=== PATIENT | male | born 1970 ===

== ENCOUNTER 2024-12-14 13:48 | Emergency (ER) | payer OTHER ==
[2024-12-14 14:29] VITALS: BMI 16.9
[2024-12-14 14:49] LABS: ABSOLUTE IMMATURE GRANULOCYTES 0.04 x10^3/uL (0.0-0.031); BASOPHILS # 0.02 x10^3/uL (0.01-0.08); EOSINOPHIL % 1.6 % (0.8-7.0); EOSINOPHILS # 0.11 x10^3/uL (0.04-0.54); HEMATOCRIT 23.7 % (40.1-51.0); HEMOGLOBIN 7.1 g/dL (13.7-17.5); MEAN CELL VOLUME 85.3 fl (79.0-92.2); MEAN PLT VOLUME 9.1 fl (9.4-12.4); MONOCYTE # 0.61 x10^3/uL (0.30-0.82); MONOCYTE % 8.9 % (5.3-12.2); PLATELET COUNT 149 x10^3/uL (163-337); RDW 16.5 % (12.2-16.1)
[2024-12-14 14:59] LABS: ACTIVATED PTT 33.3 SECONDS (25.2-36.5)
[2024-12-14 15:18] LABS: POTASSIUM 3.9 mmol/L (3.5-5.1)
[2024-12-14 15:19] LABS: CALCIUM 8.5 mg/dL (8.5-10.1)
[2024-12-14 15:30] LABS: ALBUMIN 1.9 g/dl (3.4-5.0); BILIRUBIN,TOTAL 0.2 mg/dL (0.2-1); BLOOD UREA NITROGEN 55.1 mg/dL (7-18); CREATININE 4.1 mg/dL (0.55-1.3); TOT PROT 6.8 g/dl (6.4-8.2)
[2024-12-14 19:58] LABS: ABSOLUTE IMMATURE GRANULOCYTES 0.02 x10^3/uL (0.0-0.031); BASOPHILS # 0.04 x10^3/uL (0.01-0.08); EOSINOPHILS # 0.13 x10^3/uL (0.04-0.54); HEMATOCRIT 26.5 % (40.1-51.0); HEMOGLOBIN 8.1 g/dL (13.7-17.5); MCHC 30.6 g/dl (32.3-36.5); MEAN CELL VOLUME 83.9 fl (79.0-92.2); MEAN PLT VOLUME 8.9 fl (9.4-12.4); MONOCYTE # 0.77 x10^3/uL (0.30-0.82); MONOCYTE % 11.7 % (5.3-12.2); PLATELET COUNT 146 x10^3/uL (163-337); RDW 16.1 % (12.2-16.1)
[2024-12-14] MEDS: EPOETIN ALFA 10,000 UNIT/1 ML VIAL SQ ONE (20:14)
[2024-12-15 02:19] VITALS: BP 126/72; PULSE 82; RESP 17; TEMP 98.6
== END 2024-12-15 02:19 | disposition home or self-care (01) ==
LOC: JER 13:48
PROC: 3E013GC Introduction of Other Therapeutic Substance into Subcutaneous Tissue, Percutaneous Approach (ICD-10-PCS; principal; 2024-12-14)
DX: I13.2 Hypertensive heart and chronic kidney disease with heart failure and with stage 5 chronic kidney disease, or end stage renal disease (principal); I50.9 Heart failure, unspecified; E11.22 Type 2 diabetes mellitus with diabetic chronic kidney disease; N18.6 End stage renal disease; D63.1 Anemia in chronic kidney disease; Z99.2 Dependence on renal dialysis
CPT/HCPCS: 36415; 36430; 80053; 85025; 85610; 85730; 86850; 86900; 86901; 86922; 93005; 93010; 99291; J0885; P9058

== ENCOUNTER 2025-02-14 14:08 | Inpatient (IN) | payer BC, OTHER ==
[2025-02-14] MEDS ORDERED: VANCOMYCIN 750 MG in DEXTROSE 5%-WATER - 250 ML IVPB ONE (16:52)
[2025-02-14 16:54] LABS: HCV DIAGNOSTIC IN-HOUSE W/RFLX NON-REACTIVE (NONREACTIVE)
[2025-02-14 16:56] LABS: HIV INTERPRETATION NEGATIVE (NEGATIVE)
[2025-02-14 17:39] LABS: ABSOLUTE IMMATURE GRANULOCYTES 0.06 x10^3/uL (0.0-0.031); BASOPHILS # 0.02 x10^3/uL (0.01-0.08); EOSINOPHIL % 0.2 % (0.8-7.0); EOSINOPHILS # 0.02 x10^3/uL (0.04-0.54); MCHC 28.3 g/dl (32.3-36.5); MEAN CELL VOLUME 81.3 fl (79.0-92.2); MEAN PLT VOLUME 9.0 fl (9.4-12.4); MONOCYTE # 0.79 x10^3/uL (0.30-0.82); MONOCYTE % 9.3 % (5.3-12.2); RDW 19.5 % (12.2-16.1)
[2025-02-14 17:41] LABS: INR 1.04 (0.83-1.09); PROTHROMBIN TIME (PATIENT) 11.4 SEC (9.7-13.0)
[2025-02-14 17:44] LABS: ACTIVATED PTT 33.1 SECONDS (25.2-36.5)
[2025-02-14] MEDS ORDERED: PIPERACILLIN/TAZOB 2.25 GM 2.25 GM/50 ML BAG IVPB ONE (17:48)
[2025-02-14 17:50] LABS: BG HCT 35.0 % (35.4-49); VENOUS BASE EXCESS 2.3 mmol/L (-2-2); VENOUS O2 SATURATION 30.8 % (70-80); VENOUS PCO2 48.6 mmHg (38-52); VENOUS PH 7.38 (7.310-7.410)
[2025-02-14 17:51] LABS: CO2 27.0 mmol/L (21-32)
[2025-02-14 17:52] LABS: GLUCOSE,RANDOM 74.0 mg/dL (74-106)
[2025-02-14 17:54] LABS: SGPT/ALT 7.0 U/L (13-61)
[2025-02-14 17:55] LABS: CREATININE 2.1 mg/dL (0.55-1.3); SGOT/AST 6.0 U/L (15-37)
[2025-02-14 17:56] LABS: TOT PROT 6.2 g/dl (6.4-8.2)
[2025-02-14 17:57] LABS: ALK PHOS 57.0 U/L (45-117)
[2025-02-14] MEDS: LACTATED RINGERS SOLUTION 1000 ML INFUS.BAG IV STA (18:04)
[2025-02-14] MEDS: PIPERACILLIN/TAZOB 4.5 GM 2.25 GM in DEXTROSE 5%-WATER 100 ML IVPB ONE (18:05)
[2025-02-14 18:30] LABS: EPI CELLS 35 /uL (0-25.1); HYALINE CASTS 3 /uL (0-3.1); URINE APPEARANCE TURBID; URINE BACTERIA >9,000 /uL (0-1359); URINE BILIRUBIN NEGATIVE (NEGATIVE); URINE COLOR YELLOW; URINE GLUCOSE (UA) NEGATIVE (NEGATIVE); URINE KETONE TRACE (NEGATIVE); URINE LEUK ESTERASE 3+ (NEGATIVE); URINE NITRITE NEGATIVE (NEGATIVE); URINE PROTEIN 2+ (NEGATIVE); URINE UROBILINOGEN 0.2 mg/dL (0.2-1.0); URINE WBC 4313 /uL (0-25.8)
[2025-02-14 20:09] LABS: URINE RBC 83.3 /uL (0-23.9); YEAST FEW (NEGATIVE)
[2025-02-14] MEDS: VANCOMYCIN/WATER FOR INJ (PEG) 750 MG/150 ML BAG IVPB ONE (20:12)
[2025-02-15] MEDS ORDERED: GABAPENTIN 100 MG CAPSULE ONE (00:50)
[2025-02-15] MEDS: GABAPENTIN 100 MG CAPSULE PO SCH (00:51)
[2025-02-15] MEDS ORDERED: MIDODRINE HCL 5 MG TABLET ONE (00:51)
[2025-02-15] MEDS: LIDOCAINE PATCH REMOVAL MC SCH (00:51)
[2025-02-15] MEDS: MIDODRINE HCL 5 MG TABLET PO SCH (00:51)
[2025-02-15 05:24] VITALS: BMI 14.5
[2025-02-15] MEDS: INSULIN ASPART SLIDING SCALE (NOVOLOG) 1 VIAL SQ SCH (06:36)
[2025-02-15] MEDS: PIPERACILLIN/TAZOB 2.25 GM 2.25 GM in DEXTROSE 5%-WATER - 50 ML IVPB SCH ×3 (06:36→17:09)
[2025-02-15] MEDS: HEPARIN NA (PORCINE) 5,000 UNITS/ML 1ML VIAL SQ SCH (06:37)
[2025-02-15 08:51] LABS: ABSOLUTE IMMATURE GRANULOCYTES 0.04 x10^3/uL (0.0-0.031); BASOPHILS # 0.03 x10^3/uL (0.01-0.08); EOSINOPHIL % 0.4 % (0.8-7.0); EOSINOPHILS # 0.03 x10^3/uL (0.04-0.54); MCHC 28.8 g/dl (32.3-36.5); MEAN CELL VOLUME 81.1 fl (79.0-92.2); MEAN PLT VOLUME 9.4 fl (9.4-12.4); MONOCYTE # 0.49 x10^3/uL (0.30-0.82); MONOCYTE % 7.1 % (5.3-12.2); RDW 20.0 % (12.2-16.1)
[2025-02-15 09:26] LABS: CO2 27.0 mmol/L (21-32); GLUCOSE,RANDOM 132.0 mg/dL (74-106)
[2025-02-15 09:28] LABS: SGPT/ALT 7.0 U/L (13-61)
[2025-02-15 09:29] LABS: CREATININE 2.8 mg/dL (0.55-1.3); SGOT/AST 6.0 U/L (15-37)
[2025-02-15 09:30] LABS: TOT PROT 6.4 g/dl (6.4-8.2)
[2025-02-15 09:31] LABS: ALK PHOS 59.0 U/L (45-117)
[2025-02-15] MEDS: ASPIRIN COATED 81 MG TABLET.EC PO SCH (10:17)
[2025-02-15] MEDS: FAMOTIDINE 20 MG TABLET PO SCH (10:17)
[2025-02-15] MEDS: CLOPIDOGREL BISULFATE 75 MG TABLET (FP) PO SCH (10:17)
[2025-02-15] MEDS: THIAMINE 100 MG TABLET PO SCH (10:17)
[2025-02-15] MEDS: NYSTATIN POWDER 100,000 UNITS/GM - 15 GM TOPICAL POWDER TP SCH (10:17)
[2025-02-15] MEDS: LIDOCAINE 4% PATCH TP SCH (10:18)
[2025-02-15 11:50] LABS: EPI CELLS 6 /uL (0-25.1); HYALINE CASTS 0 /uL (0-3.1); URINE APPEARANCE TURBID; URINE BACTERIA 262 /uL (0-1359); URINE BILIRUBIN NEGATIVE (NEGATIVE); URINE COLOR YELLOW; URINE GLUCOSE (UA) NEGATIVE (NEGATIVE); URINE KETONE TRACE (NEGATIVE); URINE LEUK ESTERASE 3+ (NEGATIVE); URINE NITRITE NEGATIVE (NEGATIVE); URINE PROTEIN 2+ (NEGATIVE); URINE UROBILINOGEN 0.2 mg/dL (0.2-1.0); URINE WBC 2565 /uL (0-25.8)
[2025-02-15 12:17] LABS: URINE RBC 65.3 /uL (0-23.9)
[2025-02-15 12:18] LABS: YEAST POSITIVE (NEGATIVE)
[2025-02-15] MEDS: LOPERAMIDE HCL 2 MG CAPSULE PO PRN (15:01)
[2025-02-15] MEDS: AMINO ACIDS/PROTEIN HYDROLYS 30 ML LIQUID.PKT PO SCH (17:11)
[2025-02-15] MEDS: LIPASE/PROTEASE/AMYLASE 6,000 UNIT CAPSULE PO SCH (17:11)
[2025-02-15] MEDS: VITAMIN B COMP W-C 1 EA TABLET (NEPHRO-VITE) PO SCH (17:11)
[2025-02-15] MEDS: PIPERACILLIN/TAZOB 2.25 GM 2.25 GM/50 ML BAG IVPB SCH (17:12)
[2025-02-15] MEDS: INSULIN GLARGINE (LANTUS) 100 UNITS/ML UNITS SQ SCH (22:08)
[2025-02-15] MEDS: MELATONIN 1 MG TABLET PO SCH (22:08)
[2025-02-16] MEDS: PIPERACILLIN/TAZOB 2.25 GM 2.25 GM in DEXTROSE 5%-WATER - 50 ML IVPB SCH (03:01)
[2025-02-16 07:11] LABS: ABSOLUTE IMMATURE GRANULOCYTES 0.06 x10^3/uL (0.0-0.031); BASOPHILS # 0.05 x10^3/uL (0.01-0.08); EOSINOPHIL % 0.7 % (0.8-7.0); EOSINOPHILS # 0.05 x10^3/uL (0.04-0.54); MCHC 28.9 g/dl (32.3-36.5); MEAN CELL VOLUME 80.5 fl (79.0-92.2); MEAN PLT VOLUME 8.7 fl (9.4-12.4); MONOCYTE # 1.01 x10^3/uL (0.30-0.82); MONOCYTE % 13.6 % (5.3-12.2); RDW 20.4 % (12.2-16.1)
[2025-02-16 08:17] LABS: CO2 27 mmol/L (21-32); GLUCOSE,RANDOM 101 mg/dL (74-106)
[2025-02-16 08:20] LABS: CREATININE 3.9 mg/dL (0.55-1.3); SGOT/AST 5 U/L (15-37)
[2025-02-16 08:22] LABS: TOT PROT 6.1 g/dl (6.4-8.2)
[2025-02-16 08:23] LABS: ALK PHOS 54 U/L (45-117); SGPT/ALT < 6 U/L (13-61)
[2025-02-16] MEDS: LOPERAMIDE HCL 2 MG CAPSULE PO PRN (15:15)
[2025-02-17] MEDS: ACETAMINOPHEN 500 MG TABLET (FP) PO ONE (03:10)
[2025-02-17 07:40] LABS: ABSOLUTE IMMATURE GRANULOCYTES 0.03 x10^3/uL (0.0-0.031); BASOPHILS # 0.05 x10^3/uL (0.01-0.08); EOSINOPHIL % 1.0 % (0.8-7.0); EOSINOPHILS # 0.07 x10^3/uL (0.04-0.54); MCHC 29.0 g/dl (32.3-36.5); MEAN CELL VOLUME 81.0 fl (79.0-92.2); MEAN PLT VOLUME 8.9 fl (9.4-12.4); MONOCYTE # 0.99 x10^3/uL (0.30-0.82); MONOCYTE % 14.1 % (5.3-12.2); RDW 20.6 % (12.2-16.1)
[2025-02-17 12:39] LABS: CO2 23 mmol/L (21-32); GLUCOSE,RANDOM 140 mg/dL (74-106)
[2025-02-17 12:42] LABS: CREATININE 4.3 mg/dL (0.55-1.3); SGOT/AST 8 U/L (15-37); SGPT/ALT < 6 U/L (13-61)
[2025-02-17 12:44] LABS: TOT PROT 6.3 g/dl (6.4-8.2)
[2025-02-17 12:45] LABS: ALK PHOS 52 U/L (45-117)
[2025-02-17 16:25] LABS: HEPATITIS B SURF AG NON-MATERN NON-REACTIVE (NONREACTIVE)
[2025-02-17] MEDS ORDERED: SODIUM CHLORIDE 250 ML IV PRN (16:51)
[2025-02-17] MEDS: EPOETIN ALFA-EPBX 10,000 UNIT/ML VIAL SQ ONE (17:30)
[2025-02-17 19:50] VITALS: RESP 18
[2025-02-17] MEDS: VANCOMYCIN/WATER FOR INJ (PEG) 1,000 MG/200 ML BAG IVPB ONE (21:43)
[2025-02-17] MEDS: ACETAMINOPHEN 500 MG TABLET (FP) PO PRN (21:43)
[2025-02-18 14:26] VITALS: BP 150/93; PULSE 80; TEMP 97.7
== END 2025-02-18 16:33 | DRG 698 ==
LOC: JER 14:08 → JERBED 21:18 → J4W 02-15 04:12
PROVIDERS: ADMIT Hospitalist; ATTEND Internal Medicine
PROC: 5A1D70Z Performance of Urinary Filtration, Intermittent, Less than 6 Hours Per Day (ICD-10-PCS; principal; 2025-02-17)
DX: T83.510A Infection and inflammatory reaction due to cystostomy catheter, initial encounter (principal); E43 Unspecified severe protein-calorie malnutrition; N18.6 End stage renal disease; I13.2 Hypertensive heart and chronic kidney disease with heart failure and with stage 5 chronic kidney disease, or end stage renal disease; I50.22 Chronic systolic (congestive) heart failure; N39.0 Urinary tract infection, site not specified; Z68.1 Body mass index [BMI] 19.9 or less, adult; E11.22 Type 2 diabetes mellitus with diabetic chronic kidney disease; Z93.50 Unspecified cystostomy status; D64.9 Anemia, unspecified; Z79.4 Long term (current) use of insulin; Z99.2 Dependence on renal dialysis; Y83.9 Surgical procedure, unspecified as the cause of abnormal reaction of the patient, or of later complication, without mention of misadventure at the time of the procedure
CPT/HCPCS: 36415; 71045-TC-FY; 80053; 81003; 82010; 82533; 82803; 82962; 83036; 83605; 83735; 83930; 84100; 84439; 84443; 84484; 85025; 85610; 85730; 86704; 86803; 86850; 86900; 86901; 87040; 87070; 87077; 87086; 87106; 87205; 87340; 87389; 87517; 87637-QW; 93005; 93010; 93306-TC; 95816; 97116-GP; 97162-GP; 99285-25; G0480; Q5106